=== PATIENT | male | born 2000 | race Hispanic/Latino ===

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

== ENCOUNTER 2022-04-23 15:08 | Emergency (ER) | payer OTHER ==
[~2022-04-23] VITALS: Ht 177.8 cm; Wt 150.5 kg
[2022-04-23 16:09] VITALS: BP 124/76
[2022-04-23] MEDS ORDERED: PREDNISONE50 MG PO (16:37)
[2022-04-23] MEDS ORDERED: ALL DAY10 MG PO (16:37)
== END 2022-04-23 16:50 | disposition home or self-care (01) ==
LOC: ED 15:08
DX: T78.40XA Allergy, unspecified, initial encounter (principal); X58.XXXA Exposure to other specified factors, initial encounter

== ENCOUNTER 2022-06-15 10:39 | Emergency (ER) | payer OTHER ==
[~2022-06-15] VITALS: Ht 177.8 cm; Wt 153.8 kg
[~2022-06-15 10:39] MED LIST: ALL DAY10 MG PO; PREDNISONE50 MG PO
[2022-06-15 10:59] VITALS: BP 121/71
[2022-06-15 11:16] VITALS: BP 121/72
[2022-06-15 11:30] VITALS: BP 125/70
[2022-06-15 11:45] VITALS: BP 112/68
[2022-06-15] MEDS ORDERED: NAPROXEN500 MG PO (11:58)
[2022-06-15 12:00] VITALS: BP 131/73
[2022-06-15 12:08] VITALS: BP 131/73
== END 2022-06-15 12:17 | disposition home or self-care (01) ==
LOC: ED 10:39
DX: S93.402A Sprain of unspecified ligament of left ankle, initial encounter (principal); X50.0XXA Overexertion from strenuous movement or load, initial encounter; X50.9XXA Other and unspecified overexertion or strenuous movements or postures, initial encounter; Y92.007 Garden or yard of unspecified non-institutional (private) residence as the place of occurrence of the external cause